=== PATIENT | male | born 1980 ===

== ENCOUNTER 2019-01-16 01:24 | Emergency (ER) | payer OTHER ==
[~2019-01-16] VITALS: Ht 175.3 cm; Wt 86.2 kg
[2019-01-16] MEDS ORDERED: CELEBREX200MG PO (07:56)
== END 2019-01-16 08:15 | disposition home or self-care (01) ==
LOC: ER 01:24
DX: M19.012 Primary osteoarthritis, left shoulder (principal); M19.011 Primary osteoarthritis, right shoulder

== ENCOUNTER 2019-01-17 22:15 | Emergency (ER) | payer OTHER ==
[~2019-01-17] VITALS: Ht 177.8 cm; Wt 86.2 kg
[~2019-01-17 22:15] MED LIST: CELEBREX200MG PO
[2019-01-18] MEDS ORDERED: EC-NAPROSYN500 MG PO (08:15)
== END 2019-01-18 08:53 | disposition home or self-care (01) ==
LOC: ER 22:15
DX: M13.89 Other specified arthritis, multiple sites (principal); M79.18 Myalgia, other site